=== PATIENT | female | born 1945 | race African-American/Black ===

== ENCOUNTER 2024-12-12 13:25 | Emergency (ER) | payer OTHER, MEDICAID ==
[~2024-12-12] VITALS: Ht 157.5 cm; Wt 64.0 kg
[~2024-12-12 13:25] MED LIST: ASPI-1497 PO; CLOP-31 PO; CRES10 PO; LOSA-412 PO; MECL-217 PO; METO25TA6 PO; OMEP20CA14 PO; TRAM50TA3 PO
[2024-12-12 13:29] VITALS: BP 155/80; PULSE 81; RESP 16; TEMP 36.9; O2SAT 99
== END 2024-12-12 15:20 | disposition left against medical advice (07) ==
LOC: ER 13:47
DX: R51.9 Headache, unspecified (principal); I10 Essential (primary) hypertension; E78.00 Pure hypercholesterolemia, unspecified
CPT/HCPCS: 72170; 99284